=== PATIENT | male | born 1985 | race Two or more races ===

== ENCOUNTER 2021-12-01 14:18 | Inpatient (IN) | payer OTHER ==
[~2021-12-01] VITALS: Ht 188 cm; Wt 81.8 kg
[2021-12-01] MEDS ORDERED: IOHEXOL 350 MG/ML 100 ML VIAL ONE (14:50)
[2021-12-01] MEDS ORDERED: SODIUM CHLORIDE 0.9% 100 ML ONE (14:50)
[2021-12-01] MEDS ORDERED: ACETAMINOPHEN 325 MG TABLET PO PRN (15:00)
[2021-12-01] MEDS ORDERED: MORPHINE SULFATE 2 MG/ML SYRINGE IVP PRN (15:00)
[2021-12-01] MEDS ORDERED: VANCOMYCIN 1GM/WATER(PEG/NADA) 200 ML IV ONE (15:00)
[2021-12-01] MEDS ORDERED: HYDROCODONE/ACETAMINOPHEN 5-325 MG TABLET PO ONE (15:00)
[2021-12-01] MEDS ORDERED: ONDANSETRON HCL 4 MG/2 ML VIAL IVP PRN (15:00)
[2021-12-01 15:10] LABS: BASOPHILS % (AUTO) 0.1 % (0.0-2.0); EOSINOPHILS % (AUTO) 0.8 % (1.0-6.0); HEMATOCRIT 38.3 % (41-53); HEMOGLOBIN 12.6 g/dL (13.5-17.5); LYMPHOCYTES % (AUTO) 7.4 % (22.0-44.0); MEAN CORPUSCULAR HEMOGLOBIN 26.8 pg (26.0-34.0); MEAN CORPUSCULAR HGB CONC 32.8 G/dL (31.0-37.0); MEAN CORPUSCULAR VOLUME 82 fL (80-100); MONOCYTES % (AUTO) 7.6 % (2.0-9.0); NEUTROPHILS # (AUTO) 11.3 K/uL (1.8-7.7); NEUTROPHILS % (AUTO) 84.1 % (40.0-70.0); PLATELET COUNT (AUTO) 260 K/uL (150-450); RED BLOOD CELL COUNT(AUTO) 4.68 MIL/uL (4.50-5.90); RED CELL DISTRIBUTION WIDTH 13.7 % (11.5-14.5)
[2021-12-01 15:26] LABS: ANION GAP 7 mmol/L (8-16); CALCIUM, TOTAL 9.5 mg/dL (8.8-10.5); CARBON DIOXIDE 28 mmol/L (22-29); CHLORIDE 101 mmol/L (98-107); CREATININE 1.27 mg/dL (0.60-1.30); GLOMERULAR FILTR. RATE CALC > 60 mL/min (>60); GLUCOSE,RANDOM 92 mg/dL (70-110); POTASSIUM 3.8 mmol/L (3.5-5.1); SODIUM SERUM 136 mmol/L (136-145); UREA NITROGEN, BLOOD 12 mg/dL (7-18)
[2021-12-01 15:32] LABS: ALANINE AMINOTRANSFERASE 25 U/L (12-78); ALBUMIN 3.4 g/dL (3.4-5.0); ALKALINE PHOSPHATASE 66 U/L (46-116); ASPARTATE AMINOTRANSFERASE 11 U/L (15-37); BILIRUBIN,TOTAL 0.5 mg/dL (0.1-1.0); C-REACTIVE PROTEIN QUANT 16.28 mg/dL (0.00-0.30); TOTAL PROTEIN, SERUM 8.4 g/dL (6.4-8.2)
[2021-12-01 16:17] LABS: ERYTHROCYTE SEDIMENTATION RATE 58 MM/HR (0-15)
[2021-12-01] MEDS ORDERED: PIPERACILLIN/TAZO 3.375 GM/D5W 50 ML IV ONE (16:30)
[2021-12-01 18:07] VITALS: BP 122/72
[2021-12-01 19:14] LABS: COVID AG,FIA SOURCE NASAL SWAB
[2021-12-01 19:50] VITALS: BP 114/61
[2021-12-01] MEDS: DOCUSATE SODIUM 100 MG CAPSULE PO SCH (22:04)
[2021-12-01] MEDS: OxyCODONE HCL/ACETAMINOPHEN 5-325 MG TABLET PO PRN (22:10)
[2021-12-01] MEDS: PIPERACILLIN/TAZO 3.375 GM/D5W 50 ML IV SCH (23:25)
[2021-12-02 04:25] VITALS: BP 102/53
[2021-12-02] MEDS: PIPERACILLIN/TAZO 3.375 GM/D5W 50 ML IV SCH ×4 (04:52→23:08)
[2021-12-02] MEDS: FAMOTIDINE 20 MG TABLET PO SCH (08:07)
[2021-12-02] MEDS: DOCUSATE SODIUM 100 MG CAPSULE PO SCH ×2 (08:07→20:18)
[2021-12-02] MEDS ORDERED: RINGERS SOLUTION,LACTATED 1,000 ML IV ONE ×2 (08:24→08:30)
[2021-12-02 08:50] VITALS: BP 95/57
[2021-12-02] MEDS ORDERED: BUPIVACAINE/EPI/PF 0.5% 30 ML VIAL ONE (09:28)
[2021-12-02] MEDS ORDERED: HYDROGEN PEROXIDE 473 ML SOLUTION ONE (09:38)
[2021-12-02] MEDS ORDERED: MEPERIDINE-PF 25 MG/ML VIAL IVP PRN (10:30)
[2021-12-02] MEDS ORDERED: HYDROmorphone 2 MG/ML VIAL IVP PRN (10:30)
[2021-12-02] MEDS ORDERED: FentaNYL CITRATE PF 100 MCG/2 ML VIAL IVP PRN (10:30)
[2021-12-02 11:27] VITALS: BP 101/63
[2021-12-02] MEDS ORDERED: OXYGEN THERAPY IH SCH (20:00)
[2021-12-02 20:38] VITALS: BP 102/56
[2021-12-03] MEDS: OxyCODONE HCL/ACETAMINOPHEN 5-325 MG TABLET PO PRN ×2 (00:24→11:11)
[2021-12-03 05:00] VITALS: BP 98/59
[2021-12-03] MEDS: PIPERACILLIN/TAZO 3.375 GM/D5W 50 ML IV SCH ×4 (05:17→22:36)
[2021-12-03] MEDS ORDERED: KETOROLAC TROMETHAMINE 60 MG/2 ML VIAL IM ONE (05:44)
[2021-12-03] MEDS ORDERED: MORPHINE SULFATE/PF 0.5 MG/ML 10 ML AMP IVP ONE (05:44)
[2021-12-03] MEDS ORDERED: MIDAZOLAM HCL 2 MG/2 ML VIAL IVP ONE (05:44)
[2021-12-03] MEDS ORDERED: LIDOCAINE/PF 2% 5 ML VIAL IM ONE (05:44)
[2021-12-03] MEDS ORDERED: ROCURONIUM BROMIDE 10 MG/ML 5 ML VIAL IVP ONE (05:44)
[2021-12-03] MEDS ORDERED: FentaNYL CITRATE PF 100 MCG/2 ML VIAL IVP ONE (05:44)
[2021-12-03] MEDS ORDERED: DEXAMETHASONE SOD PHOS 4 MG/ML VIAL IVP ONE (05:44)
[2021-12-03] MEDS ORDERED: PROPOFOL 1% 20 ML VIAL IVP ONE (05:44)
[2021-12-03] MEDS ORDERED: ONDANSETRON HCL 4 MG/2 ML VIAL IVP ONE (05:44)
[2021-12-03] MEDS: DOCUSATE SODIUM 100 MG CAPSULE PO SCH ×2 (08:05→21:17)
[2021-12-03] MEDS: FAMOTIDINE 20 MG TABLET PO SCH (08:05)
[2021-12-03 08:15] VITALS: BP 106/58
[2021-12-03 19:53] VITALS: BP 123/62
[2021-12-03] MEDS: ZOLPIDEM TARTRATE 5 MG TABLET PO PRN (23:18)
[2021-12-04 04:57] VITALS: BP 114/55
[2021-12-04] MEDS: PIPERACILLIN/TAZO 3.375 GM/D5W 50 ML IV SCH ×4 (05:16→22:26)
[2021-12-04] MEDS: DOCUSATE SODIUM 100 MG CAPSULE PO SCH ×2 (08:24→20:44)
[2021-12-04] MEDS: FAMOTIDINE 20 MG TABLET PO SCH (08:24)
[2021-12-04 08:45] VITALS: BP 122/74
[2021-12-04] MEDS: OxyCODONE HCL/ACETAMINOPHEN 5-325 MG TABLET PO PRN ×2 (09:13→20:45)
[2021-12-04 16:42] VITALS: BP 118/72
[2021-12-04 20:40] VITALS: BP 135/66
[2021-12-04] MEDS: ZOLPIDEM TARTRATE 5 MG TABLET PO PRN (22:21)
[2021-12-05] MEDS: OxyCODONE HCL/ACETAMINOPHEN 5-325 MG TABLET PO PRN (04:13)
[2021-12-05] MEDS: PIPERACILLIN/TAZO 3.375 GM/D5W 50 ML IV SCH ×4 (04:15→22:31)
[2021-12-05 05:00] VITALS: BP 114/76
[2021-12-05 06:23] LABS: BASOPHILS % (AUTO) 0.7 % (0.0-2.0); EOSINOPHILS % (AUTO) 4.6 % (1.0-6.0); HEMATOCRIT 37.7 % (41-53); HEMOGLOBIN 12.4 g/dL (13.5-17.5); LYMPHOCYTES # (AUTO) 2.1 K/uL (1.0-4.8); LYMPHOCYTES % (AUTO) 37.9 % (22.0-44.0); MEAN CORPUSCULAR HEMOGLOBIN 26.6 pg (26.0-34.0); MEAN CORPUSCULAR HGB CONC 32.9 G/dL (31.0-37.0); MEAN CORPUSCULAR VOLUME 81 fL (80-100); MONOCYTES # (AUTO) 0.6 K/uL (0.1-1.0); MONOCYTES % (AUTO) 10.9 % (2.0-9.0); NEUTROPHILS # (AUTO) 2.5 K/uL (1.8-7.7); NEUTROPHILS % (AUTO) 45.9 % (40.0-70.0); PLATELET COUNT (AUTO) 292 K/uL (150-450); RED BLOOD CELL COUNT(AUTO) 4.66 MIL/uL (4.50-5.90); RED CELL DISTRIBUTION WIDTH 13.7 % (11.5-14.5)
[2021-12-05 06:57] LABS: ALANINE AMINOTRANSFERASE 68 U/L (12-78); ALBUMIN 2.9 g/dL (3.4-5.0); ALKALINE PHOSPHATASE 65 U/L (46-116); ANION GAP 6 mmol/L (8-16); ASPARTATE AMINOTRANSFERASE 24 U/L (15-37); BILIRUBIN,TOTAL 0.2 mg/dL (0.1-1.0); CALCIUM, TOTAL 9.1 mg/dL (8.8-10.5); CARBON DIOXIDE 32 mmol/L (22-29); CHLORIDE 100 mmol/L (98-107); CREATININE 1.29 mg/dL (0.60-1.30); GLOMERULAR FILTR. RATE CALC > 60 mL/min (>60); GLUCOSE,RANDOM 102 mg/dL (70-110); POTASSIUM 3.8 mmol/L (3.5-5.1); SODIUM SERUM 138 mmol/L (136-145); TOTAL PROTEIN, SERUM 7.6 g/dL (6.4-8.2); UREA NITROGEN, BLOOD 14 mg/dL (7-18)
[2021-12-05 08:40] VITALS: BP 104/65
[2021-12-05] MEDS: DOCUSATE SODIUM 100 MG CAPSULE PO SCH ×2 (09:00→20:16)
[2021-12-05] MEDS: FAMOTIDINE 20 MG TABLET PO SCH (09:00)
[2021-12-05 15:20] VITALS: BP 114/69
[2021-12-05] MEDS: ZOLPIDEM TARTRATE 5 MG TABLET PO PRN (20:16)
[2021-12-05 20:25] VITALS: BP 112/59
[2021-12-06] MEDS: PIPERACILLIN/TAZO 3.375 GM/D5W 50 ML IV SCH ×2 (04:55→11:09)
[2021-12-06 05:22] VITALS: BP 98/62
[2021-12-06 07:35] VITALS: BP 91/54
[2021-12-06] MEDS: DOCUSATE SODIUM 100 MG CAPSULE PO SCH (08:53)
[2021-12-06] MEDS: FAMOTIDINE 20 MG TABLET PO SCH (08:53)
[2021-12-06] MEDS ORDERED: CEPH-558 PO (11:36)
[2021-12-06] MEDS ORDERED: SULF1TAB41 PO (11:40)
== END 2021-12-06 12:55 | DRG 395 ==
LOC: EMS 14:22 → 6S 14:59
PROVIDERS: ADMIT Internal Medicine; ATTEND Internal Medicine
PROC: 0J9B00Z Drainage of Perineum Subcutaneous Tissue and Fascia with Drainage Device, Open Approach (ICD-10-PCS; principal; 2021-12-02 09:35)
DX: K61.39 Other ischiorectal abscess (principal); D64.9 Anemia, unspecified; K62.89 Other specified diseases of anus and rectum; Z20.822 Contact with and (suspected) exposure to COVID-19
CPT/HCPCS: 74177; 80053; 85025; 85651; 86140; 87040; 87070; 87081; 87205; 99285; J1100; J1885; J2250; J2274; J2405; J2543; J2704; J3010; J3490; J7050; J7120; Q9967